=== PATIENT | female | born 1985 | race Caucasian/White ===

== ENCOUNTER 2022-01-21 06:59 | Day surgery (SDC) | payer BC ==
[~2022-01-21] VITALS: Ht 165.1 cm; Wt 94.2 kg
[~2022-01-21 06:59] MED LIST: Amitriptyline H10 MG PO; BUTASPCAF PO; CYCL10; ESTR.1TPW; GABA100 PO; GABA300 PO; HYDR1TAB94; IBUP800 PO; Naprosyn500 MG PO; Neurontin 100100 MG PO; Neurontin600 MG PO; OXYACE5T; OXYC10TA19 PO; TRAM50 PO
[2022-01-21] MEDS ORDERED: ESTR2 PO (07:32)
[2022-01-21] MEDS ORDERED: PROG100 PO (07:32)
[2022-01-21] MEDS ORDERED: PARO10 PO (07:32)
[2022-01-21] MEDS ORDERED: TRAZ50 PO (07:33)
[2022-01-21] MEDS ORDERED: OXYC15ER PO (07:33)
[2022-01-21] MEDS ORDERED: MELO7.5 PO (07:34)
--- NOTE | 2022-01-21 07:50 | NUR ---
01/21/22 Tania Moss CALL LIGHT WITHIN REACH.
== END 2022-01-21 08:39 | disposition home or self-care (01) ==
LOC: ORSCSDS 06:59
PROVIDERS: Orthopaedic Surgery
PROC: 01N50ZZ Release Median Nerve, Open Approach (ICD-10-PCS; principal; 2022-01-21 08:00)
DX: G56.03 Carpal tunnel syndrome, bilateral upper limbs (principal); F41.9 Anxiety disorder, unspecified; Z79.899 Other long term (current) drug therapy; Z87.891 Personal history of nicotine dependence
CPT/HCPCS: J2250; J2704; J3010; J7120

== ENCOUNTER → 2024-05-31 | Outpatient (CLI) | payer BC ==
[~2024-05-31] MED LIST changes: +ESTR2 PO; +MELO7.5 PO; +OXYC15ER PO; +PARO10 PO; +PROG100 PO; +TRAZ50 PO
[2024-05-31 16:45] LABS: U Benzodiazapine Screen DETECTED
[2024-05-31 16:46] LABS: U Amphetamine Screen Not Detected; U Barbituate Screen Not Detected; U Buprenorphine Screen Not Detected; U Cannabinoids Screen Not Detected; U Cocaine Screen Not Detected; U Methadone Screen Not Detected; U Methamphetamine Screen Not Detected; U Opiates Screen Not Detected; U Oxycodone Screen Not Detected; U Phencyclidine Screen Not Detected
== END ==
LOC: LAB SHORT 15:39 → LAB 15:39
PROVIDERS: Physician Assistant
DX: Z51.81 Encounter for therapeutic drug level monitoring (principal); Z79.891 Long term (current) use of opiate analgesic